=== PATIENT | female | born 1980 | race Caucasian/White ===

== ENCOUNTER 2024-05-05 16:54 | Emergency (ER) | payer BC, SELFPAY ==
[2024-05-05 17:00] VITALS: BP 120/84; PULSE 88; RESP 14; TEMP 36.6; O2SAT 95
[2024-05-05 18:01] LABS: Abs Immature Grans 0.02 10^3/uL (0.0-0.06); Absolute Basophil Count 0.07 10^3/uL (0.0-0.2); Absolute Eosinophil Count 0.71 10^3/uL (0.0-0.7); Absolute Lymphocyte Count 3.55 10^3/uL (1.2-3.4); Absolute Monocyte Count 0.45 10^3/uL (0.1-0.8); Absolute Neutrophil Count 3.78 10^3/uL (1.2-6.7); Basophils % 0.8 %; Eosinophils % 8.3 %; HCT 42.1 % (36.0-46.0); HGB 14.4 g/dL (11.2-15.7); Immature Grans % 0.2 %; Lymphocytes % 41.4 %; MCH 30.8 pg (27.0-33.0); MCHC 34.2 % (32.0-36.0); MCV 90 fL (80-95); MPV 9.7 fL (8.0-11.0); Monocytes % 5.2 %; Neutrophils % 44.1 %; Platelet Count 206 10^3/uL (130-400); RBC 4.68 10^6/uL (3.93-5.22); RDW 13.5 % (11.7-14.6); RDW-SD 44.6 fL; WBC 8.58 10^3/uL (4.4-10.8)
[2024-05-05] MEDS: LORazepam 1 MG TAB PO/SL (18:02)
--- NOTE | 2024-05-05 18:07 | W.ED.GENAD ---
Discharge Plan Disposition Patient Disposition: Home Discharge Details Clinical Impression: Alcohol withdrawal, Depression Primary Care Provider: Marylou Torres ED Provider: Jaky Farah Home Meds and New Rx's Prescriptions: No Action escitalopram oxalate [Lexapro] 10 mg tablet 10 mg PO DAILY Discharge Instructions Instructions: Alcohol withdrawal Additional Instructions: Call your primary care provider first thing in the morning to schedule a check-in/follow-up appointment within the week. She may be able to help provide you medication to manage your withdrawal, but this will need to closely monitored. Please stay well-hydrated, drinking plenty of fluids throughout the day. Get plenty of rest. Eat small meals throughout the day. I recommend that you follow-up with the resources provided by the recovery coaches and [facility]. school standards coach is can be very valuable for encouragement and advice while you are going through alcohol withdrawal. I strongly advise you to seek counseling for your depression. Return to emergency care or call 911 if you have any thoughts of self-harm, feel unsafe at home, have seizures or hallucinations. You may return to the emergency department anytime if you are very worried and need to be rechecked again immediately or treated for your symptoms Referrals: [facility] [Provider Group] [facility] [Outside] HPI General Date/Time Provider Initiated Documentation: 05/05/24 17:19. HPI Narrative: Linsey is a 42year old female who presents to the emergency department today for evaluation of depression and EtOH withdrawal. She reports that she has a history of alcohol abuse, usually triggered by her depression worsening. She reports she is for started using alcohol approximately 5 years ago, detoxed at home without medications (denies seizures, though did have hallucinations once); has abstained from alcohol for the last 2 years until recently. She started drinking again 1 week ago, drinking up to 4 Bota boxes daily. Reports that she wakes up with withdrawals. Says that she has been feeling unwell since she started drinking so much, with a burning feeling in her mouth. Denies recent fever/chills, cough, chest pain, abdominal pain, change in bowel or bladder function, change in menstrual cycle. Has not been eating due to ETOH consumption. She reports severe depression, but denies suicidal ideation, self harm behaviors, hallucinations, HI. Denies history of hospitalization for ETOH withdrawal or mental health/depression. Denies significant past medical history or other substance use. Mild tobacco use, approximately 5 cigarettes daily. Physical exam remarkable for anxious patient with slightly guarded affect. Mild tremor noted. Moist mucous membranes. Easy work of breathing, lung sounds clear bilaterally. Normal heart sounds. History and presentation consistent with alcohol withdrawal. As patient is not endorsing suicidal ideation, emergent psychiatric evaluation not indicated. I did offer her opportunity to speak with both recovery auditor and [facility], both of which she declined after they arrived because she felt like she was not in a good place to have a serious conversation at this time. Baseline labs obtained to rule out dehydration or significant electrolyte imbalance. I independently interpreted the following tests: CBC, CMP, UA, ASA, APAP While in the emergency department, Linsey received lorazepam for anxiety/EtOH withdrawal. She reports good improvement of symptoms, feels anxiety has decreased. She declines opportunity to stay in the emergency department longer for medication management of withdrawal, would like to go home. Says she has been able to detox in the past on her own without support. She did receive contact info for [facility] and [facility], is agreeable to following up with them. Reviewed discharge instructions with patient, including symptomatic management and red flags indicating need for return to emergency care. Advised her that she can return to the emergency department at any time if she feels she needs support with withdrawal, develops severe symptoms, develops SI/self harm/feeling unsafe at home, or if she is very concerned and wants to be rechecked again. Related Data Home Medications ?Medication ?Instructions ?Recorded ?Confirmed escitalopram oxalate 10 mg tablet 10 mg PO DAILY 05/05/24 05/05/24 (Lexapro) Allergies Allergy/AdvReac Type Severity Reaction Status Date / Time No Known Allergies Allergy Verified 05/05/24 17:09 General Stated Complaint: ETOHWithdr KARYNA: 2 Review of Systems Narrative: See HPI Course Vital Signs Vital signs: Vital Signs Temperature 36.6 C 05/05/24 17:00 Pulse 88 05/05/24 17:00 Respiratory Rate 14 05/05/24 17:00 Blood Pressure 120/84 05/05/24 17:00 Pulse Oximetry 95 05/05/24 17:00 Temperature 36.6 C 05/05/24 17:00 Temperature Source Oral 05/05/24 17:00 Pulse 88 05/05/24 17:00 Respiratory Rate 14 05/05/24 17:00 Blood Pressure 120/84 05/05/24 17:00 Blood Pressure Position Sitting 05/05/24 17:00 Pulse Oximetry 95 05/05/24 17:00 Oxygen Delivery Method Room Air 05/05/24 17:00 Oxygen Flow Rate 0 05/05/24 17:00 Pain Level 0 05/05/24 17:00 Lab/Test Results Lab/Test Results: Laboratory Tests Range/Units 05/05/24 17:55 WBC (4.4-10.8) 10^3/uL 8.58 RBC (3.93-5.22) 10^6/uL 4.68 Hgb (11.2-15.7) g/dL 14.4 Hct (36.0-46.0) % 42.1 MCV (80-95) fL 90 MCH (27.0-33.0) pg 30.8 MCHC (32.0-36.0) % 34.2 RDW (11.7-14.6) % 13.5 Plt Count (130-400) 10^3/uL 206 MPV (8.0-11.0) fL 9.7 Immature Gran % % 0.2 Neutrophils % % 44.1 Lymphocytes % % 41.4 Monocytes % % 5.2 Eosinophils % % 8.3 Basophils % % 0.8 Nucleated RBC % (0.0-0.3) % 0.0 Absolute Neutrophils (1.2-6.7) 10^3/uL 3.78 Absolute Lymphocytes (1.2-3.4) 10^3/uL 3.55 H Absolute Monocytes (0.1-0.8) 10^3/uL 0.45 Absolute Eosinophils (0.0-0.7) 10^3/uL 0.71 H Absolute Basophils (0.0-0.2) 10^3/uL 0.07 Medical Decision Making Quality:SDOH Health Related Social Needs: No Data to Display PFSH All Active Problems (Updated 05/05/24 @ 19:02 by Jaky Curry) Depression (Chronic) Alcohol withdrawal (Acute) Social History Smoking risk assessment performed?: No Alcohol Intake: current Alcohol Intake frequency: 3 or more drinks per day Drug use: Never Substance use type: does not use Do you feel safe at home: Yes PAWSS Have you Been Recently Intoxicated or Drunk Within the Last 30 days?: Yes Have you Ever Experienced Previous Episodes of Alcohol Withdrawal?: Yes Have you ever Experienced Withdrawal Seizures?: No Have you ever Experienced Delirium Tremens(DT)s?: No Have you ever undergone Alcohol Rehabilitation Treatment (i.e, inpt ot outpatient treatment programs)?: Yes Have you ever Experienced Blackouts?: Yes Have you ever Combined Alcohol with other Downers within the last 90 days?: No Have you ever Combined Alcohol with any other Substance of Abuse during the last 90 days?: No Positive Blood Alcohol level on Presentation? [PCS.BAL]: Unable to Obtain Evidence of Increased Autonomic Activity (i.e. HR>120, tremor, sweating, agitation, nausea)?: No Result: 4
[2024-05-05 18:10] LABS: Bilirubin Negative (Negative); Blood Negative (Negative); Clarity Clear (Clear); Glucose Negative (Negative); Ketones Negative (Negative); Leukocyte Esterase Negative (Negative); Nitrite Negative (Negative); Specific Gravity 1.015 (1.005-1.025); Urobilinogen 0.2 mg/dL (Up to 0.2)
[2024-05-05 18:19] LABS: ALT 34 U/L (14-59); AST 35 U/L (15-37); Albumin 4.5 g/dL (3.4-5.0); Alkaline Phosphatase 51 U/L (46-116); Anion Gap 10.8 mmol/L (3-11); BUN 9 mg/dL (7-18); Bilirubin, Total 0.52 mg/dL (0.2-1.0); CO2 30.2 mmol/L (21.0-32.0); CREATININE 0.7 mg/dL (0.55-1.02); Calcium 9.3 mg/dL (8.5-10.1); Chloride 103 mmol/L (98-107); Estimated GFR 110.67 (mL/min/1.73m2); Glucose 89 mg/dL (74-106); Potassium 3.8 mmol/L (3.5-5.1); Sodium 144 mmol/L (136-145); Total Protein 8.7 g/dL (6.4-8.2)
[2024-05-05 18:31] LABS: *AMPHETAMINES SCREEN URINE Negative (Negative); *BARBITURATES SCREEN URINE Negative (Negative); *BENZODIAZEPINES SCREEN URINE Negative (Negative); Cannabinoids THC Negative (Negative); Cocaine Screen,Urine Negative (Negative); METHADONE URINE SCREEN Negative (Negative); OPIATES URINE SCREEN Negative (Negative)
[2024-05-05 18:36] LABS: Salicylate < 2.8 mg/dL (<2.8)
[2024-05-05 18:38] LABS: HCG Qual (Urine) Negative
[2024-05-05 18:39] LABS: Tricyclic Antidepressants Negative (Negative)
[2024-05-05 18:39] LABS: Acetaminophen < 2 ug/mL (10-30)
--- NOTE | 2024-05-05 19:09 | NUR.NOTE ---
Patient presented to the ER with mother with complaints of intoxication. Patient was seen and was encouraged to wait for the lab results and further discussion about continuation of care. This nurse went to re-assess patient after returning [facility] the [facility] a patient. Patient removed her IV without any assistance and was sitting on her bed bleeding from the site. Patient apologised to this nurse and reported that the IV was hurting and she wanted it to come out.
--- OUTSIDE RECORDS SUMMARY | 2024-05-05 19:16 | XMS_ITS ---
Author Organization [facility] dicine Visit Address [address], [address] [place] [address] Care Team Providers Care Camp Dishwasher Name Role Phone Marylou Torres Unavailable [phone] ALLERGIES No Known Allergies REASON FOR VISIT Annual MEDICATIONS Medication SIG (Take, Route, Frequency, Duration) Notes Start Date End Date Status Lexapro 10 MG 1 tablet Orally Once a day for 30 days Active SOCIAL HISTORY Tobacco Use: Social History Observation Description Date Details (start date - stop date) Never Smoker NA - NA Sex Assigned At : Social History Observation Description Sex Assigned At Unknown Tobacco Use/Smoking Question Answer Notes Are you a nonsmoker Alcohol Screen Question Answer Notes Did you have a drink contain ing alcohol in the past year? Yes How often did you have a dri nk containing alcohol in the past year? Monthly or less (1 point) How many drinks did you have on a typical day when you were drinking in the past year? 1 or 2 drinks (0 point) How often did you have 6 or more drinks on one occasion in the past year? Never (0 point) Points 1 Interpretation Negative VITAL SIGNS Heart Rate 68 /min 11/13/2023 Blood pressure systolic 105 mm Hg 11/13/19 24 Blood pressure diastolic 76 mm Hg 024 Height 66 in 11/13/2023 Weight 139 lbs 11/13/2023 BMI 22.43 kg/m2 11/13/2023 Encounters Encounter Location Date Provider Diagnosis [facility] [address] [place], [place] [id number] 11/13/2023 Marylou Torres Encounter for genera l adult medical examination without abnormal findings Z00.00 ASSESSMENTS Encounter Date Diagnosis Assessment Notes Treatment Notes Treatment Clinical Notes Section Notes 11/13/2023 Encounter for general adult medical examination without abnormal findings (ICD-10 - Z00.00) Healthy adult. Consider flu/covid vaccines. MMG recommended, she will consider. Schedule appt with gynecology for pap and IUD replacement. Discussed stopping lexapro. Recommend slow taper to 10 mg then 5 mg then off. If symptoms worsen, could consider staying on lower dose. PLAN OF TREATMENT Medication Medication Name Sig Start Date Stop Date Notes Lexapro 10 MG 1 tablet Orally Once a day for 30 days Treatment Notes Assessment Notes Encounter for general adult medical examination without abnormal findings Healthy adult. Consider flu/covid vaccines. MMG recommended, she will consider. Schedule appt with gynecology for pap and IUD replacement. Discussed stopping lexapro. Recommend slow taper to 10 mg then 5 mg then off. If symptoms worsen, could consider staying on lower dose. Next Appt Details Follow Up: 1 Year,Debbie chiang n: Progress Notes * Linsey HURTADODOB:[birth year] (44 yo F)Acc No.[id number]:11/13/2023 Progress Notes Patient:??LEONILA Linsey Provider:??Marylou Torres M.D. :1980?Age:43 Y?Sex:Fe male Date:11/13/2023 Address:[address], [place], [id number] Subjective: * Chief Complaints: * ?Annual * HPI: ?New symptom(s):? Feels well. Very active. Would like to stop lexapro as it was initially started during a period of life stress, but has had withdrawal effects with trying to stop. * ROS:?General/Constitutional:?Chills??denies.??Fever??denies.??Night sweats??denies.??Weight gain??denies.??Weight loss??denies.?Ophthalmologic:?Diminished visual acuity??denies.?ENT:?Decreased hearing??denies.?Respiratory:?Cough??denies.??Shortness of breath at rest??denies.??Shortness of breath with exertion??denies.?Cardiovascular:?Chest pain at rest??denies.??Chest pain with exertion??denies.??Palpitations??denies.?Gastrointestinal:?Abdominal pain??denies.??Blood in stool??denies.??Constipation??denies.??Diarrhea??denies.??Heartburn??denies.??Na usea??denies.??Vomiting??denies.?Genitourinary:?Frequent urination??denies.??Painful urination??denies.??Incontinence??denies.?Musculoskeletal:?Muscle aches??denies.??Painful joints??denies.?Neurologic:?Dizziness??denies.??Headache??denies.??Tingling/Numbness??denies.?Psychiatric:?Depressed mood??denies.??Difficulty sleeping??denies.? * Medical History:?? * Electrical Automation Engineer History:?Periods :??every 28 days; a little more irregular.? control??copper IUD.?? * Surgical History:??right her cuong repair 1987 * Hospitalization/Major Diagno stic Procedure:?? * Family History:??Father: dec eased 65 yrs, leukemia, multiple myeloma.??Mother: alive, melanoma.??Siblings: alive.??Children: alive 14 yrs.??1 brother(s) - healthy. 1 daughter(s) - healthy. .?? * Social History:?Drugs/Alcohol:?Alcohol Screen?Did you have a drink containing alcohol in the past year???Yes ?How often did you have a drink containing alcohol in the past year???Monthly or less (1 point) ?How many drinks did you have on a typical day when you were drinking in the past year???1 or 2 drinks (0 point) ?How often did you have 6 or more drinks on one occasion in the past year???Never (0 point) ?Points??1 ?Interpretation??Negative ?Tobacco Use:?Tobacco Use/Smoking?Are you a??nonsmoker ?Miscellaneous:?Marital status: single. ?Occupation: works full-time leasing assistant. * Medications:??TakingLexapro 20 MG Tablet 1 tablet Orally Once a day Medication List reviewed and reconciled with the patientTaking Lexapro 20 MG Tablet 1 tablet Orally Once a day Medication List reviewed and reconciled with the patient * Allergies:??N.K.D.A.no[Aller gies Verified] Objective: * Vitals:??HR:68/min, BP:105/7 6mm Hg, Ht: 66 in, Wt:139lbs, BMI:22.43Index, Ht-cm: 167.64 cm, Wt-k.05 kg. * Examination: ?General Examination: ?GENERAL APPEARANCE:??alert, in no acute distress.?EYES:??pupils equal, round, reactive to light and accommodation.?EARS:??BOTH EARS, tympanic membrane intact, clear.?ORAL CAVITY:??mucosa moist.?THROAT:??no erythema, no exudate, tonsils normal, uvula midline.?NECK/THYROID:??no cervical lymphadenopathy, thyroid normal, no carotid bruit.?SKIN:??no rashes, no suspicious lesions.?HEART:??regular rate and rhythm, no murmurs, rubs, gallops.?LUNGS:??clear to auscultation bilaterally, no wheezes, rales, rhonchi.?ABDOMEN:??bowel sounds present, soft, nontender, nondistended, no hepatosplenomegaly.?EXTREMITIES:??no clubbing, cyanosis, or edema.?PERIPHERAL PULSES:??2+ posterior tibial.?NEUROLOGIC:??alert and oriented, nonfocal.? Assessment: * Assessment: 1.??Encounter for general ad ult medical examination without abnormal findings - Z00.00 (Primary)?? Plan: * Treatment: * Procedure Codes:?? * Follow Up:??1 Year,prn Care Plan: * Problems:?? * Images: * Sign off status: Completed true * Provider:??Marylou Torres M.D. Date: ??11/13/2023 History and Physical Notes * Examination Category Sub-Category Detail Notes Category Not es General Examination GENERAL APPEARANCE: alert, in no a cute distress EYES: pupils equal, round, reactive to light and accommodation EARS: BOTH EARS, tympanic membrane intact, clear THROAT: no erythema, no exud ate, tonsils normal, uvula midline NECK/THYROID: no cervical lymphade nopathy, thyroid normal, no carotid bruit HEART: regular rate and rhy thm, no murmurs, rubs, gallops LUNGS: clear to auscultatio n bilaterally, no wheezes, rales, rhonchi ABDOMEN: bowel sounds present , soft, nontender, nondistended, no hepatosplenomegaly NEUROLOGIC: alert and oriented, nonfocal SKIN: no rashes, no suspic ious lesions EXTREMITIES: no clubbing, cyanosi s, or edema PERIPHERAL PULSES: 2+ posterior tibial ORAL CAVITY: mucosa moist
--- OUTSIDE RECORDS SUMMARY | 2024-05-05 19:16 | XMS_ITS ---
Author Organization [facility] Visit Address [address], [address] [place] [address] Care Team Providers Care Manager Hiv Name Role Phone Marylou Torres Unavailable [phone] MEDICATIONS Medication SIG (Take, Route, Frequency, Duration) Notes Start Date End Date Status Lexapro 20 MG 1 tablet Orally Once a day for 30 days Active Encounters Encounter Location Date Provider Diagnosis [facility] [address] [place] [id number] 10/29/2023 Marylou Torres PLAN OF TREATMENT Medication Medication Name Sig Start Date Stop Date Notes Lexapro 20 MG 1 tablet Orally Once a day for 30 days Progress Notes * Linsey KEENDOB:[birth year] (43 yo F)Acc No.[id number]:10/29/2023 Patient:??Linsey KEEN :1980?Age:43 Y?Sex:Fe male [address] [place] [address] * Refills?? Refill Lexapro Tablet, 20 MG, Orally, 30, 1 tablet, Once a day, 30 days, Refills=0 * true * Date:??
--- OUTSIDE RECORDS SUMMARY | 2024-05-05 19:17 | XMS_ITS ---
Author Organization [facility] dicine Visit Address [address], [address] [place] [address] Care Team Providers Care Fourdrinier Wire Weaver Name Role Phone Marylou Torres Unavailable [phone] REASON FOR VISIT left shoulder back pain MEDICATIONS Medication SIG (Take, Route, Frequency, Duration) Notes Start Date End Date Status Lexapro 20 MG 1 tablet Orally Once a day Active SOCIAL HISTORY Tobacco Use: Social History Observation Description Date Details (start date - stop date) Never Smoker NA - NA Sex Assigned At : Social History Observation Description Sex Assigned At Unknown Tobacco Use/Smoking Question Answer Notes Are you a nonsmoker VITAL SIGNS Heart Rate 72 /min 01/03/2023 Blood pressure systolic 100 mm Hg 01/04/20 23 Blood pressure diastolic 80 mm Hg 023 Height 66 in 01/03/2023 Weight 148 lbs 01/03/2023 BMI 23.89 kg/m2 01/03/2023 Encounters Encounter Location Date Provider Diagnosis [facility] [address] [place], [place] [id number] 01/03/2023 Marylou Brian Pain in left shoulder M25.512 and Encounter for screening mammogram for malignant neoplasm of breast Z12.31 ASSESSMENTS Encounter Date Diagnosis Assessment Notes Treatment Notes Treatment Clinical Notes Section Notes 01/03/2023 Pain in left shoulder (ICD-10 - M25.512) suspect rotator cuff strain; recommend heat, aleve bid for 2 weeks; discussed ROM exercises and need to avoid lifting or sudden movements with left shoulder. If worsening or not improving, may need ortho or PT eval 01/03/2023 Encounter for screening mammogram for malignant neoplasm of breast (ICD-10 - Z12.31) PLAN OF TREATMENT Treatment Notes Assessment Notes Pain in left shoulder suspect rotator cu ff strain; recommend heat, aleve bid for 2 weeks; discussed ROM exercises and need to avoid lifting or sudden movements with left shoulder. If worsening or not improving, may need ortho or PT eval Future Test Test Name Order Date MG MAMMOGRAPHY BILATERAL SCREENING 01/04 Next Appt Details Follow Up: 1 Year,prn, Reaso n: Progress Notes * Linsey HURTADODOB:[birth year] (43 yo F)Acc No.[id number]:01/03/2023 Progress Notes Patient:??Linsey HURTADO Provider:??Marylou Torres M.D. :1980?Age:42 Y?Sex:Fe male Date:01/03/2023 Address:[address] [place], [id number] Subjective: * Chief Complaints: * ?Left shoulder back teresita n * HPI: ?New symptom(s):? Acute lower back pain with lifting case of water 2 weeks ago. Improved some after a few days and went rock climbing. Now with increased upper back, shoulder for about 5 days ago. Not waking her at night. Took 600 mg of ibuprofen for about 2 days. Heat helped. Saw a chiropractor but that didn't help much. L elbow pain/tendonitis for about 2 years. Running, rock climbing. No nerve pain or weakness. * ROS:?General/Constitutional:?Chills??denies.??Fever??denies.??Night sweats??denies.??Weight gain??denies.??Weight loss??denies.?Ophthalmologic:?Diminished visual acuity??denies.?ENT:?Decreased hearing??denies.?Respiratory:?Cough??denies.??Shortness of breath at rest??denies.??Shortness of breath with exertion??denies.?Cardiovascular:?Chest pain at rest??denies.??Chest pain with exertion??denies.??Palpitations??denies.?Gastrointestinal:?Abdominal pain??denies.??Blood in stool??denies.??Constipation??denies.??Diarrhea??denies.??Heartburn??denies.??Na usea??denies.??Vomiting??denies.?Genitourinary:?Frequent urination??denies.??Painful urination??denies.??Incontinence??denies.?Neurologic:?Dizziness??denies.??Headache??denies.??Tingling/Numbness??denies.?Psychiatric:?Depressed mood??denies.??Difficulty sleeping??denies.? * Medical History:?? * Ict Quality Assurance Engineer History:?Periods :??every 28 days.? control??copper IUD.?? * Surgical History:??right her cuong repair * Hospitalization/Major Diagno stic Procedure:?? * Family History:??Father: 65 yrs, leukemia, multiple myeloma.??Siblings: alive.??Children: alive 14 yrs.??1 brother(s) - healthy. 1 daughter(s) - healthy. .?? * Social History:?Tobacco Use:?Tobacco Use/Smoking?Are you a??nonsmoker ?Miscellaneous:?Marital status: single. ?Occupation: works full-time tiler's assistant. * Medications:??TakingLexapro 20 MG Tablet 1 tablet Orally Once a day Medication List reviewed and reconciled with the patientTaking Lexapro 20 MG Tablet 1 tablet Orally Once a day Medication List reviewed and reconciled with the patient Objective: * Vitals:??HR:72/min, BP:100/8 0mm Hg, Ht: 66 in, Wt:148lbs, BMI:23.89Index, Ht-cm: 167.64 cm, Wt-k.13 kg. * Examination: ?General Examination: ?GENERAL APPEARANCE:??alert, in no acute distress.?EYES:??pupils equal, round, reactive to light and accommodation.?EARS:??BOTH EARS, tympanic membrane intact, clear.?ORAL CAVITY:??mucosa moist.?THROAT:??no erythema, no exudate, tonsils normal, uvula midline.?NECK/THYROID:??no cervical lymphadenopathy, thyroid normal, no carotid bruit.?SKIN:??no rashes, no suspicious lesions.?HEART:??regular rate and rhythm, no murmurs, rubs, gallops.?LUNGS:??clear to auscultation bilaterally, no wheezes, rales, rhonchi.?ABDOMEN:??bowel sounds present, soft, nontender, nondistended, no hepatosplenomegaly.?MUSCULOSKELETAL:??lumbosacral spine normal, nontender; L shoulder with mild swelling and tenderness over distal acromion; full active and passive ROM but pain with extension at 90 degrees; difficulty reaching behind; strength intact.?EXTREMITIES:??no clubbing, cyanosis, or edema.?PERIPHERAL PULSES:??2+ posterior tibial.?NEUROLOGIC:??alert and oriented, nonfocal.? Assessment: * Assessment: 1.??Pain in left shoulder - M25.512 (Primary)??2.??Encounter for screening mammogram for malignant neoplasm of breast - Z12.31?? Plan: * Treatment: 2.??Encounter for screening mammogram for malignant neoplasm of breast?Imaging: MG MAMMOGRAPHY BILATERAL SCREENING (Ordered for 01/04/2023) * Procedure Codes:?? * Follow Up:??1 Year,prn * Images: * Sign off status: Completed true * Provider:??Marylou Torres M.D. Date: ??01/03/2023 History and Physical Notes * HPI (History of Present Illness) Category Sub-Category Detail Notes Category Not es New symptom(s) Acute lower b ack pain with lifting case of water 2 weeks ago. Improved some after a few days and went rock climbing. Now with increased upper back, shoulder for about 5 days ago. Not waking her at night. Took 600 mg of ibuprofen for about 2 days. Heat helped. Saw a chiropractor but that didn't help much. L elbow pain/tendonitis for about 2 years. Running, rock climbing. No nerve pain or weakness. Examination Category Sub-Category Detail Notes Category Not [...] or edema PERIPHERAL PULSES: 2+ posterior tibial MUSCULOSKELETAL: lumbosacral spine no rmal, nontender; L shoulder with mild swelling and tenderness over distal acromion; full active and passive ROM but pain with extension at 90 degrees; difficulty reaching behind; strength intact ORAL CAVITY: mucosa moist
--- OUTSIDE RECORDS SUMMARY | 2024-05-05 19:17 | XMS_ITS | Patient Health Record ---
Author Organization [facility] dicine Visit Address [address], [address] [place] [address] Care Team Providers Care Accounts Payable Processor Name Role Phone Marylou Torres Unavailable [phone] ALLERGIES No Known Allergies REASON FOR REFERRAL No Information MEDICATIONS Medication SIG (Take, Route, Frequency, Duration) [...] Heart Rate 68 /min 11/13/2023 Blood pressure diastolic 76 mm Hg 11/13/2023 Height 66 in 11/13/2023 Blood pressure systolic 105 mm Hg 11/13/2023 Weight 139 lbs 11/13/2023 BMI 22.43 kg/m2 11/13/2023 Encounters Encounter Location Date Provider Diagnosis [facility] [address] [place], [place] [id number] 11/13/2023 Marylou Torres Encounter for genera l adult medical examination without abnormal findings Z00.00 [facility] [address] [place], [place] [id number] 10/29/2023 Marylou Torres ASSESSMENTS Encounter Date Diagnosis Assessment Notes Treatment [...] staying on lower dose. PLAN OF TREATMENT Future Test Test Name Order Date MG MAMMOGRAPHY BILATERAL SCREENING 01/04 Insurance Providers Payer Name Payer Address Payer Phone Subscriber Number Group Number Insured Name Patient Relationship to Insured Coverage Start Date Coverage End Date [facility] [address], [address] [place] [address] [id number] Linsey Hurtado Self - patient is the insured 3 MEDICAL (GENERAL) HISTORY Surgical History Surgery Date(Month/Year) right hernia repair 1987
--- NOTE | 2024-05-06 16:56 | NUR.NOTE ---
Nursing Note: Pierce Hurtado called in to inquire what her blood alcohol level was when she was here yesterday. After reviewing the chart, it does not appear that it was ordered or resulted. Pt given that information over the phone.
--- NOTE | 2024-05-06 17:00 | NUR.NOTE ---
Nursing Note:Patient called sunday reguarding lab results.
== END 2024-05-05 19:17 | disposition home or self-care (01) ==
LOC: ER 19:15
PROVIDERS: Emergency Provider Nurse Practitioner Family; PCP Internal Medicine
DX: F10.230 Alcohol dependence with withdrawal, uncomplicated (principal); F32.A Depression, unspecified; F17.210 Nicotine dependence, cigarettes, uncomplicated
CPT/HCPCS: 80053; 80307; 85027; 99283; 80329; 81003; 81025; 83735; 85025